=== PATIENT | female | born 1985 | race Caucasian/White ===

== ENCOUNTER 2022-01-04 13:19 | Emergency (ER) | payer SELFPAY ==
[~2022-01-04] VITALS: Ht 157 cm; Wt 52.0 kg
[2022-01-04 13:30] VITALS: BP 118/73
--- NOTE | 2022-01-04 14:46 | Diagnostic Imaging Report ---
INDICATION: Chest pain and shortness of breath. PA and lateral chest obtained at 2:24 p.m. FINDINGS: Heart and mediastinal silhouette are normal in appearance. The lungs are clear. There is no pneumothorax or pleural fluid. IMPRESSION: Negative chest. Dictated by: Dictated on workstation # [id number]
--- NOTE | 2022-01-04 14:55 | Diagnostic Imaging Report ---
INDICATION: Right rib pain. TECHNIQUE: AP and oblique views of the right ribs were obtained. FINDINGS: There is a nondisplaced fracture of the right 7th rib. No other fractures are visualized. There is no pneumothorax or pleural fluid. IMPRESSION: Nondisplaced fracture of the right 7th rib. No other abnormality. Dictated by: Dictated on workstation # [id number]
--- NOTE | 2022-01-04 15:10 | ED Chest Pain ---
General Chief Complaint: Chest Wall Stated Complaint: SOB Nursing Triage Note: ARRIVED VIA AMB TO ROOM 09 WITH COMPLAINTS OF RIGHT RIB PAIN. STATES SHE WAS ON A LADDER LAST WEEK WHEN A DOG RAN INTO THE BOTTOM OF THE LADDER CAUSING TO HER TO GRAB ONTO S[place]THING HOLDING TIGHT AND CAUSING PAIN IN THE RIGHT RIB AREA. PT DID NOT FALL. Source: patient Exam Limitations: no limitations History of Present Illness Date Seen by Provider: January 04, 2022 Time Seen by Provider: 13:21 Initial Comments This 36-year-old woman presents to the emergency room by private vehicle with complaints of pain in the right lateral chest. She originally incurred injury a few weeks ago when she was in an intense coughing fit. Pain had improved and she was doing fairly well until she was at work today and a dog ran into the latter she was on. This caused her to reach up and grab a hold of objects to brace herself. This resulted in an extreme jerky of the upper extremities and torso. She felt a popping and sudden extreme pain. There was a grinding sensation afterwards as if she had fractured a rib. She has pain with deep breathing. Allergies and Home Medications Allergies Coded Allergies: Penicillins (Verified Allergy, Unknown, 01/04/22) PT STATES PETRA WAS DEATHLY ALLERGIC. Patient Home Medication List Home Medication List Reviewed: Yes Hydrocodone/Acetaminophen (Hydrocodone-Acetamin 5-325 mg) 5 Mg-325 Mg Tablet, 1- 2 TAB PO Q6H PRN for PAIN-MODERATE (5-7) Prescribed by: RAYRAY MAYNARD on 01/04/22 1512 Review of Systems Review of Systems Constitutional: no symptoms reported EENTM: No Symptoms Reported Respiratory: See HPI Cardiovascular: No Symptoms Reported Gastrointestinal: No Symptoms Reported Genitourinary: No Symptoms Reported Musculoskeletal: see HPI Skin: no symptoms reported Psychiatric/Neurological: No Symptoms Reported Endocrine: No Symptoms Reported Hematologic/Lymphatic: No Symptoms Reported Past Xoplath-Jkwlol-Gmexda Hx Patient Social History Tobacco Use?: No Substance use?: Yes Substance type: Marijuana Alcohol Use?: Yes Alcohol Frequency: Once in a while Immunizations Up To Date COVID19 Vaccine [employer]: PHIBLANCO Past Medical History Surgeries: No Respiratory: No Cardiac: No Neurological: No : No Reproductive Disorders: No Gastrointestinal: No Musculoskeletal: No HEENT: No Cancer: No Psychosocial: No Physical Exam Vital Signs Vital Signs - First Documented 01/04/22 13:30 Temp 36.3 Pulse 96 Resp 16 B/P (MAP) 118/73 (88) Pulse Ox 97 O2 Delivery Room Air Capillary Refill : Less Than 3 Seconds Height, Weight, BMI Height: '" Weight: lbs. oz. kg; 21.00 BMI Method: General Appearance: No Apparent Distress, Moderate Distress, Thin HEENT: PERRL/EOMI, Normal ENT Inspection Neck: Normal Inspection Respiratory: Lungs Clear, Normal Breath Sounds, No Accessory Muscle Use, Other (Splinting respirations, right lateral chest wall tenderness to palpation) Cardiovascular: Regular Rate, Rhythm, No Edema, No Murmur Gastrointestinal: Non Tender, Soft Extremity: Normal Inspection, No Pedal Edema Neurologic/Psychiatric: Alert, Oriented x3, No Motor/Sensory Deficits, Normal Mood/Affect Skin: Normal Color, Warm/Dry Progress/Results/Core Measures Results/Orders My Orders Orders - RAYRAY MUSE MD Chest Pa/Lat (2 View) (01/04/22 13:58) Ribs, Right 2-3 Views (01/04/22 13:58) Urine Bedside (01/04/22 13:59) Oxycodone/Apap 5/325mg Tablet (Percocet (01/04/22 15:15) Vital Signs/I&O 01/04/22 01/04/22 13:30 15:16 Temp 36.3 Pulse 96 76 Resp 16 16 B/P (MAP) 118/73 (88) Pulse Ox 97 96 O2 Delivery Room Air Room Air Blood Pressure Mean: 88 Progress Progress Note : Progress Note 2 view chest x-ray and rib films were obtained. Seventh rib fracture was identified. Patient was treated with Percocet and prescribed pain medication. Discharge instructions reviewed. Diagnostic Imaging Diagonstic Imaging: Xray Plain Films/CT/US/NM/MRI: chest Comments Chest and rib x-rays reviewed by me and reports reviewed. See reports below: NAME: CARMINA BENDER [facility] REC#: [id number] PT STATUS: DEP ER : 1985 PHYSICIAN: RAYRAY MUSE MD ADMIT DATE: 01/04/22/ER Signed Date of Exam:01/04/22 CHEST PA/LAT (2 VIEW) INDICATION: Chest pain and shortness of breath. PA and lateral chest obtained at 2:24 p.m. FINDINGS: Heart and mediastinal silhouette are normal in appearance. The lungs are clear. There is no pneumothorax or pleural fluid. IMPRESSION: Negative chest. Dictated by: Dictated on workstation # [id number] Dict: 01/04/22 1443 Trans: 01/04/22 1632 [id number] Interpreted by: GLADYS HANSEN MD Electronically signed by: GLADYS HANSEN MD 01/04/22 1632 NAME: CARMINA BENDER [facility] REC#: [id number] PT STATUS: REG ER : 1985 PHYSICIAN: RAYRAY MUSE MD ADMIT DATE: 01/04/22/ER Signed Date of Exam:01/04/22 RIBS, RIGHT 2-3 VIEWS INDICATION: Right rib pain. TECHNIQUE: AP and oblique views of the right ribs were obtained. FINDINGS: There is a nondisplaced fracture of the right 7th rib. No other fractures are visualized. There is no pneumothorax or pleural fluid. IMPRESSION: Nondisplaced fracture of the right 7th rib. No other abnormality. Dictated by: Dictated on workstation # [id number] Dict: 01/04/22 1444 Trans: 01/04/22 1510 [id number] Interpreted by: GLADYS HANSEN MD Electronically signed by: GLADYS HANSEN MD 01/04/22 1510 Departure Impression Primary Impression: Right rib fracture Qualified Codes: S22.31XA - Fracture of one rib, right side, initial encounter for closed fracture Disposition: 01 HOME, SELF-CARE Condition: Stable Departure-Patient Inst. Decision time for Depature: 15:06 Referrals: NO,LOCAL PHYSICIAN (PCP/Family) Primary Care Physician Patient Instructions: Rib Fracture (DC) Add. Discharge Instructions: You have a nondisplaced fracture of the seventh rib. You may treat mild pain with Tylenol (acetaminophen) up to 650 mg every 6 hours as needed. For more severe pain use hydrocodone as prescribed. Hydrocodone may cause constipation so you may wish to use a stool softener such as Colace daily while on hydrocodone. Hydrocodone may also cause drowsiness or decreased alertness. Please use with caution. Avoid driving or operating machinery while on hydrocodone. You may also try icing in 20-minute intervals or topical lidocaine patches for additional pain control. Avoid strenuous activities involving the upper body, especially activities with jerking or pulling. This may worsen pain and delay healing. Avoid using NSAID medications such as ibuprofen and naproxen as some reach research has suggested they may delay bone healing. Follow-up with your primary care provider within the next few weeks for repeat examination. If you have worsening of symptoms, especially sudden change in shortness of breath, please return to the emergency room or call 911. A sudden change in shortness of breath could indicate a collapsed lung which is an emergency. Exercise deep breathing with a goal of 10 deep breaths per hour while awake to avoid developing pneumonia. Call with questions or concerns. Return to the ER if you have worsening symptoms. All discharge instructions reviewed with patient and/or family. Voiced understanding. Scripts Hydrocodone/Acetaminophen (Hydrocodone-Acetamin 5-325 mg) 5 Mg-325 Mg Tablet 1-2 TAB PO Q6H PRN for PAIN-MODERATE (5-7), #30 TAB Prov: RAYRAY MUSE MD 01/04/22 Work/School Note: Work Release Form Date Seen in the Emergency Department: January 04, 2022 Return to Work: January 05, 2022 Other Restrictions Listed Below: Light duty for 4 works. Then gradually advance activity as tolerated. RAYRAY MUSE MD January 04, 2022 15:10
[2022-01-04] MEDS ORDERED: ACHD5005 PO (15:11)
[2022-01-04] MEDS ORDERED: oxyCODONE/APAP 5/325MG (PERCOCET 5) TABLET PO ONE (15:15)
== END 2022-01-04 15:16 | disposition home or self-care (01) ==
LOC: ER 13:21
DX: S22.31XA Fracture of one rib, right side, initial encounter for closed fracture (principal); W23.1XXA Caught, crushed, jammed, or pinched between stationary objects, initial encounter
CPT/HCPCS: 71046; 71100; 84703